=== PATIENT | male | born 1980 | race Caucasian/White ===

== ENCOUNTER 2024-02-13 14:14 | Emergency (ER) | payer BC, SELFPAY ==
[2024-02-13 14:28] VITALS: BP 197/117
[2024-02-13 15:13] LABS: % Basophils 0.3 % (0-2); % Eosinophils 2.5 % (0-6); % Immature Granulocytes 0.3 % (0-0.5); % Lymphocytes 26.6 % (20.5-51.1); % Monocytes 5.7 % (1.7-9.3); % Neutrophils 64.6 % (42.2-75.2); Absolute Eosinophils 0.2 10^3/uL (0-0.7); Absolute Lymphocytes 2.5 10^3/uL (1.2-3.4); Absolute Monocytes 0.5 10^3/uL (0.1-0.6); Hematocrit 47.3 % (39.0-52.0); Mean Corp Hgb Conc. 33.8 g/dL (33.0-37.0); Mean Corpuscular Hgb 28.7 pg (27.0-31.0); Mean Corpuscular Volume 84.8 fL (80.0-94.0); Mean Platelet Volume 9.9 fL (7.4-10.4); Nucleated Red Blood Cells % 0 % (-); Platelet Count 210 10^3/uL (130-400); Red Blood Cell Count 5.58 10^6/uL (4.70-6.10); Red Cell Dist. Width 12.3 % (11.5-14.5); White Blood Cell Count 9.2 10^3/uL (4.8-10.8)
[2024-02-13 15:17] LABS: Urine Albumin Negative (Neg - Trace); Urine Bilirubin Negative (Negative); Urine Character Clear (Clear); Urine Color Yellow; Urine Glucose Negative (Negative); Urine Ketone Negative (Negative); Urine Leukocyte Negative (Negative); Urine Nitrite Negative (Negative); Urine Occult Blood Negative (Negative); Urine Urobilinogen Negative (Neg - 1+)
[2024-02-13 15:28] LABS: ALT (SGPT) 50 U/L (0-50); AST (SGOT) 39 U/L (17-59); Albumin 4.4 g/dl (3.5-5.0); Alkaline Phosphatase 98 U/L (38-126); Blood Urea Nitrogen 13 mg/dl (9-20); Calcium 9.5 mg/dl (8.4-10.2); Carbon Dioxide 24 mmol/L (22-30); Chloride 104 mmol/L (98-107); Glucose 103 mg/dl (70-99); Potassium 4.3 mmol/L (3.5-5.1); Sodium 139 mmol/L (135-145); Total Bilirubin 1.1 mg/dl (0.2-1.3); Total Protein 7.3 g/dl (6.3-8.2); eGFR > 60.00
--- NOTE | 2024-02-13 16:24 | ED.GENMED ---
History of Present Illness
<Tiffanie Moyer PA-C - Last Filed: 02/13/24 19:41>
General
Chief Complaint: Flank Pain
Source: patient
Exam Limitations: none
Time Seen by Provider: 02/13/24 16:07
Nursing documentation reviewed up to this point in time: agreed with
Travel History
Have you had any contact with someone who has COVID-19?: No
Do you have any symptoms of coronavirus? Fever > 100 degrees, chills, cough, shortness of breath, sore throat, loss of taste or smell, muscle aches, or headache?: No
History of Present Illness
History of Present Illness:
Patient is a 43-year-old male presenting for evaluation of right lower back pain. Patient states he first noticed the dull pain in his right lower back approximately 2 days ago. Starting today while cleaning his truck he had a very severe sharp
pain in his right lower back. He describes it as a sharp/cramping pain but denies any radiation into his abdomen, groin, or down his leg. Patient states severe pain has been waxing and waning throughout the day. He has not attributed pain with
certain movements or positions. He believes the episodes to be random.
Patient denies any associated fever, chills, nausea, vomiting, or urinary symptoms. Patient denies any numbness/tingling lower extremities, weakness, bowel/bladder, or paresthesia.
Past History
<Tiffanie Moyer PA-C - Last Filed: 02/13/24 19:41>
Past History
ED Past Medical History: None
ED Past Surgical History: None
Social History
Personal:
Living: with family
Employment: Employed
Review of Systems
<Tiffanie Moyer PA-C - Last Filed: 02/13/24 19:41>
Review of Systems
Allergies reviewed?: Yes
All Other Systems: ROS reviewed and negative except as documented in HPI and ROS
Phy Exam
<Tiffanie Moyer PA-C - Last Filed: 02/13/24 19:41>
Physical Exam
Physical Exam:
Vitals: Patient's vital signs are stable. Afebrile
General: Patient is well appearing, no acute distress
Skin: Warm and dry, no rashes or lesions
Head: Normocephalic, atraumatic
Eyes: Sclera nonicteric. EOMs intact. No nystagmus.
Throat: Protecting airway
Neck: Normal ROM, no cervical spine tenderness, no meningismus
Cardiac: Regular rate and rhythm, no murmurs.
Pulm: Normal respiratory effort, no wheezes, rales, rhonchi heard on exam.
Abdomen: Abdomen soft. No abdominal tenderness.
Back: No midline spinal tenderness. No reproducible tenderness in right lower back. No rashes. No CVA tenderness. Negative straight leg raise bilaterally.
Extremities: No evidence of cyanosis or edema. DP pulses palpable and equal bilaterally. Strength 5 out of 5 in upper and lower extremities.
Neuro: AAOx3. CN II-XII intact. No focal neurologic deficits.
Psychiatric: Normal affect.
Course
<Tiffanie Moyer PA-C - Last Filed: 02/13/24 19:41>
Orders/Labs/Results
Orders:
Orders
02/13/24 14:46
Complete Blood Count/With Diff Urgent
Comprehensive Metabolic Panel Urgent
Urinalysis Reflex To Culture Urgent
Date Specimen was Collected: 02/13/24
Time Specimen was Collected: 14:29
02/13/24 16:32
CT Abd/pel Without Iv Or Oral Urgent
Comment:
Reason For Exam: right lower back pain, r/o kidney stone
02/13/24 16:34
Ketorolac [Toradol] 15 mg IM NOW STA
02/13/24 16:45
Ketorolac [Toradol] 30 mg IM NOW STA
Abnormal Lab Results
02/13/24
14:46
Glucose 103 H mg/dl
(70-99)
02/13/24 14:46
02/13/24 14:46
Vital Signs
Initial and Last Documented VS:
Initial Vital Signs
Temp Pulse Resp BP Pulse Ox
98.2 F 84 19 197/117 98
02/13/24 14:28 02/13/24 14:28 02/13/24 14:28 02/13/24 14:28 02/13/24 14:28
Last Documented Vital Signs
Temp Pulse Resp BP Pulse Ox
98.2 F 76 19 140/77 98
02/13/24 14:28 02/13/24 19:06 02/13/24 14:28 02/13/24 19:06 02/13/24 14:28
<Haile Silvestre MD - Last Filed: 02/13/24 18:19>
Orders/Labs/Results
Orders:
Orders
02/13/24 14:46
Complete Blood Count/With Diff Urgent
Comprehensive Metabolic Panel Urgent
Urinalysis Reflex To Culture Urgent
Date Specimen was Collected: 02/13/24
Time Specimen was Collected: 14:29
02/13/24 16:32
CT Abd/pel Without Iv Or Oral Urgent
Comment:
Reason For Exam: right lower back pain, r/o kidney stone
02/13/24 16:34
Ketorolac [Toradol] 15 mg IM NOW STA
02/13/24 16:45
Ketorolac [Toradol] 30 mg IM NOW STA
Abnormal Lab Results
02/13/24
14:46
Glucose 103 H mg/dl
(70-99)
02/13/24 14:46
02/13/24 14:46
Vital Signs
Initial and Last Documented VS:
Initial Vital Signs
Temp Pulse Resp BP Pulse Ox
98.2 F 84 19 197/117 98
02/13/24 14:28 02/13/24 14:28 02/13/24 14:28 02/13/24 14:28 02/13/24 14:28
Last Documented Vital Signs
Temp Pulse Resp BP Pulse Ox
98.2 F 76 19 140/77 98
02/13/24 14:28 02/13/24 19:06 02/13/24 14:28 02/13/24 19:06 02/13/24 14:28
<Tiffanie Moyer PA-C - Last Filed: 02/13/24 19:41>
MDM/Problems Addressed
Differential Diagnosis Includes:
Not limited to: Muscular strain, muscular spasm, kidney stone, pyelonephritis, zoster
MDM/Problems Addressed:
43-year-old male presenting with 3 days of intermittent right lower back pain. No fever, chills, urinary symptoms. No radiation of pain to abdomen or down leg. He was working on a trailer at initial onset of pain. No red flag back symptoms vital
stable. Patient is nontoxic-appearing. Exam as above. No midline spinal tenderness or reproducible tenderness in right lower lumbar region. No rashes noted. Negative straight leg raise on right. Labs obtained in triage show no clinically
significant abnormalities. Urine shows no infection or blood. Given symptoms are nonreproducible�will check noncontrast scan of abdomen/pelvis to eval for kidney stone, although I feel this is unlikely. Suspect likely muscular strain/spasm. Will
give 30 IM Toradol. Reassess.
Patient does report Toradol 'took the edge off '. CT pending.
CT shows no evidence of obstructive stone bilaterally or other acute abnormalities. Suspect likely lower back spasm. Stable for discharge with return precautions. Will send muscle relaxer to pharmacy. Patient will follow-up with PCP.
There was a possible cyst seen in the right kidney and recommended nonemergent outpatient ultrasound. Patient was made aware of this finding. Printed CT scan report for patient to follow-up with primary care provider.
Chronic conditions affecting care:
N/A
Acute Exacerbation and/or Progression of Chronic Illness:
N/A
<Tiffanie Moyer PA-C - Last Filed: 02/13/24 19:41>
*Radiology
Radiology exam reviewed: preliminary read by ED provider and radiology read reviewed
*Pulse Oximetry
Patient hypoxic: no
*EKG
Interpreted by ED Provider?: NA
*Bottom Buffer Interpretation
Rate: Bottom Buffer- N/A
*Critical Care Note
Total Time (30-74mins, 75-104mins- exclusive of procedures): Not Applicable
ED Attending Note
<Tiffanie Moyer PA-C - Last Filed: 02/13/24 19:41>
-
Portions of this chart may have been created with voice recognition software.� Occasional wrong word or��sound alike� substitutions may have occurred due to the inherent limitations of voice recognition software.
<Haile Silvestre MD - Last Filed: 02/13/24 18:19>
ED Attending Note
Patient seen and examined by attending physician: Yes
I performed the substantive portion of visit, reviewed & personally made and approve the management plan that is documented in note by myself or [place].: Yes
ED Attending Note:
43-year-old male complaining of nontraumatic right lower back pain. At times seems positional was worse with bouncing in his tractor earlier today. No shooting pain down the leg no abdominal pain no urinary symptoms no fever. He gets jolts of
spasm and severe pain however. Has been going on or off for days
On exam patient is nontoxic in no distress. Warm and dry perfusing well. Abdomen soft nontender. Elevated BMI. Good distal pulses and color. Negative straight leg raising. Good strength. No spinal tenderness. Patient points to the lower
sacroiliac area.
Likely musculoskeletal. There is some positional component. Labs normal. Await CT scan if negative symptomatic treatment muscle relaxers and follow-up
Discharge Plan
Departure
Patient Disposition: Home (Routine Discharge)
Date of Disposition: 02/13/24
Time of Disposition: 19:23
Patient with high blood pressure during this ER visit?: Yes
Condition: Good
Covid-19: Not Applicable
Discharge Problem:
Lower back pain
Instructions: Low Back Pain (DC), Muscle Spasm ED, BLOOD PRESSURE
Prescriptions:
New
cyclobenzaprine 10 mg tablet
10 mg PO TIDPRN PRN (Reason: muscle spasm) Qty: 10 0RF
No Action
No Meds [No Current Medications]
Referrals:
Mervin Stark MD [Active] - As needed
Keith Rushing MD [Family Provider] - Follow up in 5-7 days
Activity Restrictions/Additional Instructions:
RETURN TO THE EMERGENCY DEPARTMENT WITH ANY FEVERS, CHILLS, NUMBNESS/TINGLING IN LOWER EXTREMITIES, WEAKNESS, BOWEL/BLADDER INCONTINENCE, INTRACTABLE PAIN, OR ANY OTHER CONCERNS
-A prescription for cyclobenzaprine, a muscle relaxer, has been sent to your pharmacy. You can take this every 8 hours as needed for muscle spasm. This may cause drowsiness. You should not take prior to driving.
-You can take Motrin and/or Tylenol for discomfort. You can try [id number] lidocaine patches, as well.
-As discussed there was a possible cyst seen in your right kidney. You should have this further evaluated with an ultrasound outpatient. Follow-up with your PCP.
-For further management of hernia you should follow-up with a general surgeon.
-You should follow-up with your primary care provider for further evaluation/management. If symptoms persist you may require further imaging.
Interventions
Interventions:
*Risk Screen - Suicide Last Done: 02/13/24 15:36
*General Assessment Last Done: 02/13/24 15:36
*Neglect/Abuse Screening Last Done: 02/13/24 15:36
*ED COVID-19 Vaccine History Last Done: 02/13/24 15:36
*Nursing Disposition Last Done: 02/13/24 19:35
VN-Penivq-Inglfjtlgw Assessment Last Done: 02/13/24 18:51
ED-Male Genitourinary Assessment Last Done: 02/13/24 18:51
Discharge Date and Time
Print Language: [place]
[2024-02-13] MEDS: TORADOL 30 MG IM (17:26)
[2024-02-13 19:06] VITALS: BP 140/77
[2024-02-13 19:35] VITALS: BP 140/77
== END 2024-02-13 19:36 | disposition home or self-care (01) ==
LOC: EMR 14:14
PROVIDERS: Emergency Medicine; EMERGENCY PHYSICIAN Emergency Medicine; FAMILY PHYSICIAN Family Medicine
DX: M54.50 Low back pain, unspecified (principal); I10 Essential (primary) hypertension
CPT/HCPCS: 99284; 96372; 74176; 80053; 81003; 85025

== ENCOUNTER → 2024-05-13 09:43 | Outpatient (REF) | payer BC, SELFPAY | LOC: HWRAD 09:43 | PROVIDERS: ATTENDING PHYSICIAN Physician Assistant | DX: N28.1 Cyst of kidney, acquired (principal) | CPT/HCPCS: 76775 ==